=== PATIENT | male | born 1955 | race Asian ===

== ENCOUNTER 2023-02-11 10:23 | Outpatient (CLI) | payer MEDICARE, SELFPAY ==
--- NOTE | ~2023-02-11 | MR_ITS ---
EXAMINATION: MR pelvis wo con DATE: 02/11/2023 11:31 INDICATION: Prostate cancer TECHNIQUE: Magnetic resonance imaging (MRI) of the pelvis was performed without intravenous contrast. [place]field sequences of the pelvis included axial and coronal T2-weighted SS FSE, axial, sagittal and coronal 2D FIESTA, axial 2D FIESTA FS, axial SSFSE-IR NARCISA, axial dual-echo T1-weighted FSPGR, axial and coronal T1 weighted LAVA, 3D axial T2 Cube, axial diffusion-weighted SE with apparent diffusion c oefficient (ADC) maps. COMPARISON: PET/CT dated 02/11/2023 FINDINGS: Prostate demonstrates heterogeneous signal intensity and is mildly enlarged measuring 4.1 x 3.0 x 3.9 cm smooth peripheral margins. There is a maintained thin fat pad between the prostate and the rectum . Seminal vesicles are unremarkable. No pathologically enlarged pelvic, abdominal or inguinal lymphad enopathy. Small fat-containing bilateral inguinal hernias, right greater than left. Visualized portio n of the bowels are unremarkable. Minimal lumbar dextrocurvature with mild spondylosis. Normal bone m arrow signal throughout. IMPRESSION: 1. Mild prostatomegaly. No evident metastatic disease. Reviewed, dictated and finalized at location A.
--- NOTE | ~2023-02-11 | PE_ITS ---
EXAMINATION: PET_PETPSMAST_PT DATE: 02/11/2023 15:27 INDICATION: Prostate cancer TECHNIQUE: 9.165 mCi of pipflufolastat F-18 (18-F-DCFPyL) was administered i.v. Low dose computed to mography (CT) images were acquired from the base of the brain to the base of the brain to the proxima l thighs for attenuation correction and anatomic localization. Positron emission tomography (PET) favian ges were acquired in the same distribution beginning 87 minutes after injection. Images including fus ed PET/CT images were reconstructed in axial, coronal, and sagittal planes. Automated exposure contro l technique was employed. The dose-length product was 578.50mGy-cm. COMPARISON: Pelvis MR dated 02/11/2023 FINDINGS: Head/neck: There is misregistration between the CT and PET images due to intervening change in positioning of th e head. Typical pattern of symmetric physiologic increased activity in the lacrimal, parotid and subm andibular glands as well as along the mucosa of the nasal and oral cavities, the meme-, naso- and hypo pharynx, the glottis and esophagus. Typical symmetric pattern of tiny foci of mild uptake at the bila teral mid to lower cervical neural foramina likely cyst with physiologic neural ganglion uptake. No p athologically enlarged cervical lymphadenopathy or suspicious foci of increased uptake in the visuali zed head or neck. Chest: Mild biapical pleural-parenchymal scarring. 6 mm nodule at the left upper lobe. 11 x 6 mm nodule in t he right middle lobe. Both nodules are without abnormal PSMA uptake to suggest metastatic disease. Mi ld discoid atelectasis at the right middle lobe and lingula. Couple small calcified nodules in the li ngula consistent with old granulomatous disease. No pneumonia, pulmonary edema or pleural effusion. H eart size is normal. Atherosclerotic coronary artery calcific lesion. Venous sternotomy wires and gustavo nges of prior coronary artery bypass grafting. Thoracic aorta is normal in caliber. No pathologically enlarged or PSMA avid thoracic lymphadenopathy. Abdomen/pelvis/proximal thighs: Physiologic renal accumulation and excretion of activity in the kidneys, bladder and along portions o f ureters. Normal degree and slightly heterogenous pattern of increased uptake throughout the liver a nd spleen without radiologic correlate or dominant PSMA avid lesion. The gallbladder, pancreas and bi lateral adrenal glands are normal. Moderate uptake scattered throughout the bowels with typical duode nal and proximal jejunal predominance and without radiologic correlate, also likely physiologic. Norm al appendix. There are foci of abnormal increased uptake in the prostate which are without discrete c orrelates on the CT imaging or separate pelvic MR . 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 The focus of increased uptake at the left posterior prostate appears slightly less than 1 cm with maximal SUV of 8.4. No oth er abnormal foci of increased uptake or pathologically enlarged lymphadenopathy in the abdomen, pelvi s or proximal thighs. Musculoskeletal: A couple small sclerotic bone islands at the left femoral head and at the medial bases cervical left femur, both without increased PSMA activity. No suspicious lytic, blastic or PSMA avid bone lesions. IMPRESSION: 1. 2 foci of moderate increased uptake at the left posterior right posterior prostate likely represen ts the site of a reported primary prostate cancer. No evident metastatic disease. Reviewed, dictated and finalized at location A. IMPRESSION: 1. 2 foci of moderate increased uptake at the left posterior right posterior pr ostate likely represents the site of a reported primary prostate cancer. No ke dent metastatic disease.
== END 2023-02-11 10:24 | disposition home or self-care (01) ==
PROVIDERS: Visit Provider Radiology Radiation Oncology
DX: C61 Malignant neoplasm of prostate (principal)
CPT/HCPCS: 72195; 78815; A9595